=== PATIENT | male | born 1965 | race Caucasian/White ===

== ENCOUNTER 2024-11-07 10:49 | Inpatient (IN) | payer OTHER ==
[~2024-11-07] VITALS: Ht 170.2 cm; Wt 57.0 kg
[2024-11-07] MEDS ORDERED: LOSA-382 PO (11:11)
[2024-11-07] MEDS ORDERED: INSNPH SQ (11:11)
[2024-11-07] MEDS ORDERED: EMPA10TA3 PO (11:11)
[2024-11-07] MEDS ORDERED: PRED-549 PO (11:11)
[2024-11-07] MEDS ORDERED: ROSU20TA98 PO (11:11)
[2024-11-07] MEDS ORDERED: ALLO-45 PO (11:11)
[2024-11-07] MEDS ORDERED: TRIA1CAP87 PO (11:11)
[2024-11-07] MEDS ORDERED: INSU100V SQ (11:11)
[2024-11-07] MEDS ORDERED: GABA-1181 PO (11:11)
[2024-11-07] MEDS ORDERED: TACR1CAP12 PO (11:11)
[2024-11-07 11:31] LABS: BASOPHILS % (AUTO) 0.4 % (0.0-2.0); EOSINOPHILS % (AUTO) 1.1 % (1.0-6.0); HEMATOCRIT 31.1 % (41-53); HEMOGLOBIN 10.3 g/dL (13.5-17.5); LYMPHOCYTES # (AUTO) 1.9 K/uL (1.0-4.8); LYMPHOCYTES % (AUTO) 20.7 % (22.0-44.0); MEAN CORPUSCULAR HEMOGLOBIN 29.7 pg (26.0-34.0); MEAN CORPUSCULAR HGB CONC 33.3 G/dL (31.0-37.0); MEAN CORPUSCULAR VOLUME 89 fL (80-100); MONOCYTES % (AUTO) 11.1 % (2.0-9.0); NEUTROPHILS # (AUTO) 6.1 K/uL (1.8-7.7); NEUTROPHILS % (AUTO) 66.7 % (40.0-70.0); PLATELET COUNT (AUTO) 328 K/uL (150-450); RED BLOOD CELL COUNT(AUTO) 3.48 MIL/uL (4.50-5.90); RED CELL DISTRIBUTION WIDTH 13.1 % (11.5-14.5); WHITE BLOOD COUNT (AUTO) 9.2 K/uL (4.5-11.0)
[2024-11-07 11:41] LABS: ANION GAP 2 mmol/L (8-16); CARBON DIOXIDE 33 mmol/L (22-29); CHLORIDE 96 mmol/L (98-107); CREATININE 2.25 mg/dL (0.60-1.30); GLOMERULAR FILTR. RATE CALC 30 mL/min (>60); GLUCOSE,RANDOM 74 mg/dL (70-110); POTASSIUM 3.7 mmol/L (3.5-5.1); SODIUM SERUM 131 mmol/L (136-145); UREA NITROGEN, BLOOD 61 mg/dL (7-18)
[2024-11-07 11:42] LABS: CALCIUM, TOTAL 8.7 mg/dL (8.8-10.5)
[2024-11-07 11:48] LABS: ALBUMIN 2.6 g/dL (3.4-5.0); BILIRUBIN,DIRECT 0.1 mg/dL (0.00-0.20); BILIRUBIN,TOTAL 0.3 mg/dL (0.1-1.0); TOTAL PROTEIN, SERUM 6.5 g/dL (6.4-8.2)
[2024-11-07 11:52] LABS: LIPASE 62 U/L (16-77); TROPONIN I-HIGH SENSITIVITY 17 ng/L (<76)
[2024-11-07] MEDS ORDERED: DEXTROSE 50%-WATER 25 GM/50 ML SYRINGE IVP PRN (13:30)
[2024-11-07] MEDS: SODIUM CHLORIDE 0.9% 1,000 ML IV SCH (13:35)
[2024-11-07 14:02] LABS: APPEARANCE,URINE CLEAR (CLEAR); BILIRUBIN,URINE NEGATIVE (NEGATIVE); COLOR,URINE COLORLESS (YELLOW); GLUCOSE, URINE (UA) 300-500 mg/dL (NEGATIVE); KETONES,URINE NEGATIVE (NEGATIVE); LEUKOCYTE ESTERASE ,URINE NEGATIVE (NEGATIVE); NITRATE,URINE NEGATIVE (NEGATIVE); OCCULT BLOOD,URINE NEGATIVE (NEGATIVE); PROTEIN,URINE TRACE mg/dL (NEGATIVE); SPECIFIC GRAVITIY, URINE 1.008 (1.003-1.030); UROBILINOGEN,URINE <=1.0 mg/dL (<=1.0)
[2024-11-07 14:17] LABS: BACTERIA,URINE None Seen /HPF (None Seen); RBC,URINE None Seen /HPF (0-2); SQUAMOUS EPITHELIAL CELL,UR Rare /LPF (None Seen); WBC,URINE None Seen /HPF (0-5)
[2024-11-07] MEDS: HEPARIN SODIUM,PORCINE 5,000 UNITS/ML VIAL SQ SCH (15:08)
[2024-11-07] MEDS: INSULIN LISPRO 100 UNITS/ML SQ PRN (18:27)
[2024-11-07 18:30] VITALS: BP 127/83; PULSE 98; RESP 18; TEMP 98.8; O2SAT 98
[2024-11-07 20:20] VITALS: BP 117/76; PULSE 98; RESP 18; TEMP 98.6; O2SAT 98
[2024-11-07] MEDS: DOCUSATE SODIUM 100 MG CAPSULE PO SCH (21:02)
[2024-11-07] MEDS: ACETAMINOPHEN 325 MG TABLET PO PRN (21:03)
[2024-11-07 21:31] LABS: GLUCOMETER DEV NAME(LOC) 5S.1D; GLUCOSE,POINT OF CARE 215 MG/DL (70-110)
[2024-11-08] MEDS: ONDANSETRON HCL 4 MG/2 ML VIAL IVP PRN (02:19)
[2024-11-08 05:15] VITALS: BP 123/84; PULSE 99; RESP 18; TEMP 98.2; O2SAT 97
[2024-11-08 06:10] LABS: GLUCOMETER DEV NAME(LOC) 5S.1D; GLUCOSE,POINT OF CARE 261 MG/DL (70-110)
[2024-11-08 06:36] LABS: CALCIUM, TOTAL 8.6 mg/dL (8.8-10.5); CREATININE 1.64 mg/dL (0.60-1.30); POTASSIUM 4.3 mmol/L (3.5-5.1)
[2024-11-08 07:33] VITALS: BP 121/77; PULSE 102; RESP 18; TEMP 98.4; O2SAT 97
[2024-11-08 07:41] LABS: GLUCOMETER DEV NAME(LOC) 4E.2; GLUCOSE,POINT OF CARE 228 MG/DL (70-110)
[2024-11-08] MEDS: FAMOTIDINE 20 MG TABLET PO SCH (09:07)
[2024-11-08] MEDS: ATORVASTATIN CALCIUM 20 MG TABLET PO SCH (09:07)
[2024-11-08] MEDS: ASPIRIN 81 MG CHEWABLE TABLET PO SCH (09:09)
[2024-11-08] MEDS ORDERED: INSU100I26 SQ (11:53)
[2024-11-08] MEDS ORDERED: MYCO500T5 PO (11:53)
[2024-11-08] MEDS ORDERED: CALC0.2521 PO (11:53)
[2024-11-08] MEDS: MYCOPHENOLATE MOFETIL 250 MG CAPSULE PO SCH (13:54)
[2024-11-08] MEDS: PredniSONE 5 MG TABLET PO SCH (13:54)
[2024-11-08 14:06] LABS: GLUCOMETER DEV NAME(LOC) 5S.1D; GLUCOSE,POINT OF CARE 394 MG/DL (70-110)
[2024-11-08 15:15] VITALS: BP 109/62; PULSE 94; RESP 18; TEMP 98.8; O2SAT 98
[2024-11-08 18:35] LABS: GLUCOMETER DEV NAME(LOC) 5S.1D; GLUCOSE,POINT OF CARE 197 MG/DL (70-110)
[2024-11-08 20:13] VITALS: BP 140/73; PULSE 105; RESP 16; TEMP 98.6; O2SAT 98
[2024-11-08] MEDS: TACROLIMUS 1 MG CAPSULE PO SCH (20:18)
[2024-11-09 05:32] VITALS: BP 156/79; PULSE 95; RESP 18; TEMP 97.8; O2SAT 97
[2024-11-09 07:30] LABS: GLUCOMETER DEV NAME(LOC) 6N.1B; GLUCOSE,POINT OF CARE 198 MG/DL (70-110)
[2024-11-09 07:36] LABS: CALCIUM, TOTAL 8.6 mg/dL (8.8-10.5); CREATININE 1.36 mg/dL (0.60-1.30); POTASSIUM 4.1 mmol/L (3.5-5.1)
[2024-11-09 07:56] VITALS: BP 154/86; PULSE 90; RESP 18; TEMP 98.2; O2SAT 98
[2024-11-09 14:06] LABS: GLUCOMETER DEV NAME(LOC) 6N.1B; GLUCOSE,POINT OF CARE 343 MG/DL (70-110)
[2024-11-09 16:00] VITALS: BP 157/96; PULSE 92; RESP 18; TEMP 98.2; O2SAT 97
[2024-11-09] MEDS: LOSARTAN POTASSIUM 25 MG TABLET PO SCH (17:02)
[2024-11-09 19:45] LABS: GLUCOMETER DEV NAME(LOC) 6N.1B; GLUCOSE,POINT OF CARE 263 MG/DL (70-110)
[2024-11-09 20:04] VITALS: BP 133/79; PULSE 87; RESP 18; TEMP 98.7; O2SAT 98
[2024-11-09 20:30] LABS: GLUCOMETER DEV NAME(LOC) 5S.1D; GLUCOSE,POINT OF CARE 350 MG/DL (70-110)
[2024-11-10] MEDS ORDERED: SODIUM CHLORIDE 0.9% 500 ML IV ONE (00:43)
[2024-11-10 06:06] VITALS: BP 152/79; PULSE 83; RESP 18; TEMP 98.2; O2SAT 98
[2024-11-10 07:08] VITALS: BP 140/77; PULSE 84; RESP 18; TEMP 98.6; O2SAT 97
[2024-11-10 08:25] LABS: GLUCOMETER DEV NAME(LOC) 6N.1B; GLUCOSE,POINT OF CARE 247 MG/DL (70-110)
[2024-11-10 10:53] LABS: ANION GAP 5 mmol/L (8-16); CALCIUM, TOTAL 8.5 mg/dL (8.8-10.5); CARBON DIOXIDE 28 mmol/L (22-29); CHLORIDE 105 mmol/L (98-107); CREATININE 1.07 mg/dL (0.60-1.30); GLOMERULAR FILTR. RATE CALC > 60 mL/min (>60); GLUCOSE,RANDOM 223 mg/dL (70-110); POTASSIUM 4.2 mmol/L (3.5-5.1); SODIUM SERUM 138 mmol/L (136-145); UREA NITROGEN, BLOOD 26 mg/dL (7-18)
[2024-11-10] MEDS: MORPHINE SULFATE 2 MG/ML SYRINGE IVP PRN (11:39)
[2024-11-10] MEDS: EMPAGLIFLOZIN 10 MG TABLET PO SCH (11:40)
[2024-11-10 16:07] VITALS: BP 143/94; PULSE 92; RESP 18; TEMP 97.9; O2SAT 97
[2024-11-10 19:21] LABS: GLUCOMETER DEV NAME(LOC) 5S.1D; GLUCOSE,POINT OF CARE 299 MG/DL (70-110)
[2024-11-10 19:21] LABS: GLUCOMETER DEV NAME(LOC) 5S.1D; GLUCOSE,POINT OF CARE 327 MG/DL (70-110)
[2024-11-10 19:51] VITALS: BP 138/73; PULSE 91; RESP 18; TEMP 98.8; O2SAT 100
[2024-11-10 21:31] LABS: GLUCOMETER DEV NAME(LOC) 5S.1D; GLUCOSE,POINT OF CARE 309 MG/DL (70-110)
[2024-11-10 21:36] LABS: GLUCOMETER DEV NAME(LOC) 4E.2; GLUCOSE,POINT OF CARE 209 MG/DL (70-110)
[2024-11-11 04:43] VITALS: BP 161/82; PULSE 84; RESP 18; TEMP 98.4; O2SAT 99
[2024-11-11 07:00] LABS: GLUCOMETER DEV NAME(LOC) 5S.1D; GLUCOSE,POINT OF CARE 184 MG/DL (70-110)
[2024-11-11 08:00] VITALS: BP 142/87; PULSE 93; RESP 19; TEMP 98.6; O2SAT 96
[2024-11-11 10:20] LABS: BASOPHILS % (AUTO) 0.6 % (0.0-2.0); EOSINOPHILS % (AUTO) 2.6 % (1.0-6.0); HEMATOCRIT 31.3 % (41-53); HEMOGLOBIN 10.5 g/dL (13.5-17.5); LYMPHOCYTES % (AUTO) 22.3 % (22.0-44.0); MEAN CORPUSCULAR HEMOGLOBIN 30.1 pg (26.0-34.0); MEAN CORPUSCULAR HGB CONC 33.4 G/dL (31.0-37.0); MEAN CORPUSCULAR VOLUME 90 fL (80-100); MONOCYTES # (AUTO) 0.7 K/uL (0.1-1.0); MONOCYTES % (AUTO) 7.5 % (2.0-9.0); NEUTROPHILS # (AUTO) 5.9 K/uL (1.8-7.7); PLATELET COUNT (AUTO) 345 K/uL (150-450); RED BLOOD CELL COUNT(AUTO) 3.48 MIL/uL (4.50-5.90); RED CELL DISTRIBUTION WIDTH 13.3 % (11.5-14.5); WHITE BLOOD COUNT (AUTO) 8.8 K/uL (4.5-11.0)
[2024-11-11] MEDS: GlipiZIDE 5 MG TABLET PO SCH (11:14)
[2024-11-11] MEDS ORDERED: HEPA500018 SQ (13:41)
[2024-11-11] MEDS ORDERED: ASPI-1450 PO (13:41)
[2024-11-11] MEDS ORDERED: DOCU-385 PO (13:41)
[2024-11-11] MEDS ORDERED: FAMO20 PO (13:41)
[2024-11-11] MEDS ORDERED: ATOR20TA PO (13:41)
[2024-11-11] MEDS ORDERED: ACET-2247 PO (13:41)
[2024-11-11] MEDS ORDERED: INSU100V SQ (13:52)
[2024-11-11 16:06] VITALS: BP 139/87; PULSE 98; RESP 17; TEMP 98.1; O2SAT 99
[2024-11-11 17:40] LABS: GLUCOMETER DEV NAME(LOC) 5S.1D; GLUCOSE,POINT OF CARE 237 MG/DL (70-110)
[2024-11-11 18:21] LABS: GLUCOMETER DEV NAME(LOC) 6N.1B; GLUCOSE,POINT OF CARE 290 MG/DL (70-110)
== END 2024-11-11 19:40 | DRG 469 ==
LOC: EMS 10:49 → EDH 13:19 → UNDOADMIN 14:00 → EDH 19:00 → 4E 19:00
PROVIDERS: ADMIT Internal Medicine; ATTEND Internal Medicine
PROC: 0QS6XZZ Reposition Right Upper Femur, External Approach (ICD-10-PCS; principal; 2024-11-09)
DX: N17.9 Acute kidney failure, unspecified (principal); S72.111A Displaced fracture of greater trochanter of right femur, initial encounter for closed fracture; E43 Unspecified severe protein-calorie malnutrition; T86.19 Other complication of kidney transplant; M32.14 Glomerular disease in systemic lupus erythematosus; I12.0 Hypertensive chronic kidney disease with stage 5 chronic kidney disease or end stage renal disease; I69.351 Hemiplegia and hemiparesis following cerebral infarction affecting right dominant side; D63.8 Anemia in other chronic diseases classified elsewhere; N18.6 End stage renal disease; E11.22 Type 2 diabetes mellitus with diabetic chronic kidney disease; E11.40 Type 2 diabetes mellitus with diabetic neuropathy, unspecified; E86.0 Dehydration; I69.320 Aphasia following cerebral infarction; Y92.89 Other specified places as the place of occurrence of the external cause; Z83.3 Family history of diabetes mellitus; E78.00 Pure hypercholesterolemia, unspecified; M10.9 Gout, unspecified; X58.XXXA Exposure to other specified factors, initial encounter; Y93.89 Activity, other specified; Y83.8 Other surgical procedures as the cause of abnormal reaction of the patient, or of later complication, without mention of misadventure at the time of the procedure; Y99.8 Other external cause status; Z68.1 Body mass index [BMI] 19.9 or less, adult
CPT/HCPCS: 70450; 71045; 72192; 73502; 80048; 80076; 80197; 81001; 82962; 83690; 84484; 85025; 87081; 93005; 97110; 97112; 97163; 97166; 97530; 97535; 99285; G0378; J1644; J2270; J2405; J7030; J7040; J7507; J7517; 36415-L1; 36415-TC